=== PATIENT | male | born 1975 | race African-American/Black ===

== ENCOUNTER 2017-08-03 12:53 | Emergency (ER) | payer OTHER ==
[2017-08-03 13:10] VITALS: BP 121/75; PULSE 106; RESP 18; TEMP 97.1
--- NOTE | 2017-08-03 13:26 | ED ---
Skin/Abscess/FB HPI - General Chief complaint: Skin/Abscess/Foreign Body Stated complaint: Abscess under armpits Time Seen by Provider: 08/03/17 13:10 Source: patient Mode of arrival: ambulatory Limitations: no limitations - History of Present Illness Initial comments: 42-year-old male patient presents to the emergency department today for evaluation of abscess to the left and right axilla. Patient reports that for the last week he has been developing abscess on the left side. Patient states he started getting one on the right side today. Patient states he does frequently get these abscesses. States that occasionally they will drain on their own however he has had them drained in the past. Patient does have a past medical history significant for diabetes and high cholesterol. Patient does take insulin and oral diabetic medication. Patient reports he has taken his medications as directed. Patient states he has had some chills over the last couple of days however denies any fevers. He denies any nausea or vomiting. Denies any dizziness or weakness. States the pain is localized to the axilla only. Patient denies any recent rash, shortness breath, chest pain, abdominal pain, nausea, vomiting, diarrhea, constipation, back pain, numbness, tingling, dizziness, weakness, hematuria, dysuria, urinary urgency, urinary frequency, headache, visual changes, or any other complaints. - Related Data Previous Rx's Medication Instructions Recorded Acetaminophen-Codeine 300-30mg 1 tab PO Q6H PRN #15 tablet 08/03/17 [Tylenol #3] Sulfamethoxazole/Trimethoprim 2 each PO BID #40 tablet 08/03/17 [Bactrim DS 800-160 mg] Allergies Allergy/AdvReac Type Severity Reaction Status Date / Time No Known Allergies Allergy Verified 08/03/17 13:10 Review of Systems ROS Statement: Those systems with pertinent positive or pertinent negative responses have been documented in the HPI. ROS Other: All systems not noted in ROS Statement are negative. Past Medical History Past Medical History: Diabetes Mellitus, Hyperlipidemia, Hypertension History of Any Multi-Drug Resistant Organisms: None Reported Additional Past Surgical History / Comment(s): vascectomy Past Psychological History: No Psychological Hx Reported Smoking Status: Current every day smoker Past Alcohol Use History: Rare Past Drug Use History: None Reported General Exam Limitations: no limitations General appearance: alert, in no apparent distress, other (This is a well- developed, obese adult male patient in no acute distress. Vital signs upon presentation are temperature 97.1F, pulse 106, respirations 18, blood pressure 121/75, pulse ox 96% on room air.) Eye exam: Present: normal appearance, PERRL, EOMI. Absent: scleral icterus, conjunctival injection, periorbital swelling Respiratory exam: Present: normal lung sounds bilaterally. Absent: respiratory distress, wheezes, rales, rhonchi, stridor Cardiovascular Exam: Present: regular rate, normal rhythm, normal heart sounds. Absent: systolic murmur, diastolic murmur, rubs, gallop, clicks Extremities exam: Present: full ROM, normal capillary refill, other (2cm abscess to the left axilla, minimal surrounding erythema. Left axilla also exhibits small 1cm abscess. Right axilla exhibits small 1cm abscess. No lymphadenopathy.). Absent: normal inspection, tenderness, pedal edema, joint swelling, calf tenderness Neurological exam: Present: alert, oriented X3, CN II-XII intact Psychiatric exam: Present: normal affect, normal mood Skin exam: Present: warm, dry, intact, normal color. Absent: rash Course Vital Signs 08/03/17 13:07 Temperature 97.1 F L Pulse Rate 106 H Respiratory 18 Rate Blood Pressure 121/75 O2 Sat by Pulse 96 Oximetry Procedures - Incision & Drainage Consent Obtained: verbal consent Time Out Performed?: Yes Indication: Abscess Site: other (Left axilla) Size (cm): 2 Anesthetic Used: lidocaine 1% Amount (mLs): 8 I&D Cleaning Method: Betadine Scalpel Used: #11 I&D Drainage Obtained: Pus, Blood Culture Obtained?: Yes Complications: pain Patient Tolerated Procedure: well Medical Decision Making - Medical Decision Making 42-year-old male patient presented to the emergency department today for evaluation of abscess to his left and right axilla. Physical examination did reveal a 2 cm abscess to the left axilla with minimal surrounding erythema. There was a small amount of fluctuance with this abscess we did perform incision and drainage. Did get a small amount of pus and blood out. We did obtain a culture. There is also a small less than 1 cm abscess to the left axilla in the right axilla. Patient was educated regarding warm compress application. He was instructed to complete antibiotic prescription and full. He will be put on Bactrim 2 tablets twice a day for 10 days. He is instructed to follow-up with his primary care physician for recheck of the wounds in 1-2 days. Return parameters discussed in detail. He verbalizes understanding and agrees with this plan. Disposition Clinical Impression: Cutaneous abscesses of both axillae Disposition: HOME SELF-CARE Condition: Good Instructions: Abscess Incision and Drainage (ED), Abscess (ED), Warm Compress or Soak (ED) Additional Instructions: Apply warm compresses to both arm pits 20 minutes at a time at least 4 times per day. Complete antibiotic prescription in full. Follow-up with your primary care physician for recheck of the wounds in 1-2 days. Return here immediately for any new, worsening, or concerning symptoms. Prescriptions: Acetaminophen-Codeine 300-30mg [Tylenol #3] 1 tab PO Q6H PRN #15 tablet PRN Reason: Pain Sulfamethoxazole/Trimethoprim [Bactrim DS 800-160 mg] 2 each PO BID #40 tablet Referrals: Nonstaff,Physician [Primary Care Provider] - 1-2 days Time of Disposition: 13:41
== END 2017-08-03 14:02 | disposition home or self-care (01) ==
LOC: EC 12:53
DX: L02.412 Cutaneous abscess of left axilla (principal); L02.411 Cutaneous abscess of right axilla; E11.9 Type 2 diabetes mellitus without complications; F17.200 Nicotine dependence, unspecified, uncomplicated; Z79.4 Long term (current) use of insulin
CPT/HCPCS: 10060; 87070; 87077; 87186; 87205; 99283